=== PATIENT | male | born 1990 | race African-American/Black ===

== ENCOUNTER 2017-09-02 08:26 | Emergency (ER) | payer OTHER ==
[~2017-09-02] VITALS: Ht 175.3 cm; Wt 102.9 kg
[2017-09-02 08:29] VITALS: BP 151/91
[2017-09-02] MEDS ORDERED: FLEXERIL10 MG PO (11:37)
[2017-09-02] MEDS ORDERED: NAPROSYN500 MG PO (11:37)
== END 2017-09-02 12:15 | disposition home or self-care (01) ==
LOC: EME 08:26
DX: S43.402A Unspecified sprain of left shoulder joint, initial encounter (principal); X50.0XXA Overexertion from strenuous movement or load, initial encounter; Y93.89 Activity, other specified; Y99.0 Civilian activity done for income or pay
CPT/HCPCS: 73030; 99281; 99284